=== PATIENT | male | born 1985 | race Caucasian/White ===

== ENCOUNTER 2023-03-24 18:36 | Emergency (ER) | payer OTHER, SELFPAY ==
[2023-03-24 18:40] VITALS: BP 134/85; PULSE 99; RESP 18; TEMP 36.5; O2SAT 97; BMI 29.7
--- NOTE | 2023-03-24 19:30 | DI.RAD.S_ITS ---
PROCEDURE: XR FINGER RT MIN 2V INDICATIONS: laceration TECHNIQUE: PA hand, 2 views of the thumb acquired. COMPARISON: None. FINDINGS: Bones: No acute fractures or dislocations. No suspicious bony lesions. Soft tissues: No suspicious soft tissue calcifications. No radiopaque foreign body. IMPRESSION: No acute osseous abnormality. No radiopaque foreign body. If clinical suspicion and/or symptoms persist, additional imaging with repeat plain films, or advanced imaging (e.g. CT, MRI) may be helpful for further assessment. Approved by: Juan C Gonzalez M.D. on 03/24/2023 at 20:16
--- NOTE | 2023-03-24 20:01 | ED.WOUNDLAC ---
HPI - Wound/Laceration General Chief Complaint: Wound/Laceration Stated Complaint: Thumb lac Time Seen by Provider: 03/24/23 19:45 Source: patient Mode of arrival: Ambulatory History of Present Illness HPI narrative: Patient is a 37-year-old male who presents with right thumb laceration. He reports he was working on a car when he caught his thumb. He is no numbness tingling or weakness. Able to flex and extend thumb without any difficulty. He is in the tetanus is up-to-date. He is actually right handed. Related Data Allergies Allergy/AdvReac Type Severity Reaction Status Date / Time No Known Drug Allergies Allergy Verified 03/24/23 18:43 Review of Systems Review of Systems ROS Unobtainable: All systems reviewed & are unremarkable except as noted in HPI and below Patient History Social History Smoking Status: Current every day smoker Smoking Status: Current every day smoker tobacco type: smokeless tobacco alcohol intake frequency: holidays/special occasions only Substance Use Type: does not use Exam Initial Vital Signs Initial Vital Signs: Vital Signs Temperature 97.7 F 03/24/23 18:40 Pulse Rate 99 H 03/24/23 18:40 Respiratory Rate 18 03/24/23 18:40 Blood Pressure 134/85 03/24/23 18:40 Pulse Oximetry 97 03/24/23 18:40 Oxygen Delivery Method Room Air 03/24/23 18:40 GENERAL: Well-appearing, well-nourished and in no acute distress. CARDIOVASCULAR: peripheral pulses in tact, cap refill <2 sec RESPIRATORY: No respiratory distress, speaks in full sentences without difficulty EXTREMITIES: Normal range of motion, no clubbing or edema. Neurovascularly intact NEUROLOGICAL: Cranial nerves II through XII grossly intact. Normal gait and speech. SKIN: Rate thumb laceration over interphalangeal joint. It will flex and extend against resistance. Sensation between 1st and 2nd intact. Procedures Laceration Repair Laceration 1: Size (cm): 2 Description: flap Depth: simple, single layer Local Anesthetic: lidocaine 1% Amount of anesthesia used (mL): 2 Pre-repair: wound explored, irrigated extensively and deep structures intact Skin layer closed with: nylon Skin layer suture size: 5-0 Number of sutures: 3 Course Orders Ordered: ED Orders 03/24/23 19:30 XR finger RT min 2V Stat Discontinued Medications Lidocaine HCl (Lidocaine 1% (Pf) 5 Ml) 5 ml INJ NOW ONE Stop: 03/24/23 19:34 Last Admin: 03/24/23 20:04 Dose: 5 ml Documented By: GLENIS Vital Signs Vital signs: Vital Signs - 8 hr 03/24/23 18:40 03/24/23 20:28 Temperature 97.7 F Pulse Rate 99 H 80 Respiratory Rate 18 18 Blood Pressure 134/85 126/74 Pulse Oximetry 97 99 Oxygen Delivery Method Room Air Room Air MDM - Wound/Laceration Imaging Data Extremity x-ray #1: Radiologist's Impression: PROCEDURE:? XR FINGER RT MIN 2V ? INDICATIONS:? laceration ? TECHNIQUE:? PA hand, 2 views of the thumb acquired.? ? COMPARISON:? None. ? FINDINGS:? ? Bones:? No acute fractures or dislocations.? No suspicious bony lesions.? ? Soft tissues:? No suspicious soft tissue calcifications.? No radiopaque foreign body. ? IMPRESSION:? No acute osseous abnormality.? No radiopaque foreign body.? If clinical suspicion and/or symptoms persist, additional imaging with repeat plain films, or advanced imaging (e.g. CT, MRI) may be helpful for further assessment. ? ? ? Approved by: Juan C Gonzalez M.D. on 03/24/2023 at 20:16? [facility] Narrative Medical decision making narrative: Patient 37-year-old male who presents for right thumb laceration. Easily repaired no fracture identified on x-ray. Tetanus is up-to-date. It was irrigated need for antibiotics. Supportive care only at this time. Discharge Plan Departure Patient Disposition: Home Clinical Impression: Laceration of right thumb Instructions: DI for Laceration Repair Activity Restrictions/Additional Instructions: 1. Have your suture removed in 5-7 days, you may go to walk-in clinic, return to the ER or call your primary care physician. 2. No soaking in water including dishes, bathtubs, Lakes, swimming pools etc -okay to bathe. Keep clean and dry with soap and water Antibiotic ointment twice a day 3. Signs of infection include, but not limited to, increased redness, increased swelling, increased pain, fever and purulent drainage, if the symptoms should arise, you may need an antibiotic and you should have a reevaluation either by your primary care provider or by the emergency department. Stand Alone Forms: Patient Portal/API
[2023-03-24] MEDS: LIDOCAINE 1% (PF) 5 ML INJ (20:04)
[2023-03-24 20:28] VITALS: BP 126/74; PULSE 80; RESP 18; O2SAT 99
== END 2023-03-24 20:29 | disposition home or self-care (01) ==
PROVIDERS: Emergency Provider Emergency Medicine
DX: S61.011A Laceration without foreign body of right thumb without damage to nail, initial encounter (principal); W45.8XXA Other foreign body or object entering through skin, initial encounter
CPT/HCPCS: 12001; 73140; 99283